=== PATIENT | female | born 1960 | race Hispanic/Latino ===

== ENCOUNTER 2021-07-19 11:58 | Emergency (ER) | payer MEDICAID ==
[2021-07-19 14:36] LABS: Basophils % (Auto) 0.1 % (0.0-1.8); Eosinophils % (Auto) 0.2 % (0.0-4.3); Hematocrit 29.2 % (30.3-42.9); Hemoglobin 9.4 gm/dl (10.1-14.3); Lymphocytes # (Auto) 1.5 K/mm3 (1.2-5.4); Lymphocytes % (Auto) 15.9 % (13.4-35.0); Mean Corpuscular HGB Conc 32 % (30-34); Mean Corpuscular Volume 84 fl (79-97); Monocytes # (Auto) 0.4 K/mm3 (0.0-0.8); Platelet Count 313 K/mm3 (140-440); Red Blood Count 3.49 M/mm3 (3.65-5.03); Red Cell Distribution Width 18.5 % (13.2-15.2)
[2021-07-19 14:39] LABS: Albumin 3.7 g/dL (3.9-5); Calcium 8.5 mg/dL (8.4-10.2)
[2021-07-19] MEDS ORDERED: LORazepam 2 MG/ML VIAL IV ONE (21:22)
--- NOTE | 2021-07-19 21:53 | Cat Scan Report ---
NONENHANCED CT SCAN OF THE HEAD: INDICATION / CLINICAL INFORMATION: 60 years Female; Seizure. TECHNIQUE: Routine CT head without contrast. All CT scans at this location are performed using CT dos e reduction for ALARA by means of automated exposure control. COMPARISON: None. FINDINGS: BRAIN / INTRACRANIAL CONTENTS: No acute hemorrhage, mass effect, midline shift, hydrocephalus, or acu te, large territorial infarct. No chronic infarct or focal atrophy. Normal brain volume and ventricul ar/sulcal size for age. No significant white matter abnormality. Given the history of seizures, no space taking lesion in the frontal or in the temporal lobes; normal temporal horn tips suggest normal medial temporal lobes; no nodular heterotopia CRANIOCERVICAL JUNCTION: No significant abnormality. ORBITS: No significant abnormality of visualized orbits. SINUSES / MASTOIDS: No significant abnormality of the visualized paranasal sinuses or mastoid air messi ls. ADDITIONAL FINDINGS: None. IMPRESSION: No acute focal parenchymal lesion in the brain Signer Name: Madelin Goodman MD Signed: 07/19/2021 9:49 PM Workstation Name: [employer]
[2021-07-19] MEDS ORDERED: levETIRAcetam 1000 MG/NS 0.75% 1,000 MG/100 ML BAG IV ONE (22:07)
--- NOTE | 2021-07-19 23:07 | Emergency Department Report ---
ED Seizure HPI - General Chief Complaint: Seizure Stated Complaint: DISORIENTED Time Seen by Provider: 07/19/21 20:16 Source: patient Mode of arrival: Ambulatory Limitations: No Limitations - History of Present Illness Initial Comments: Patient is a 60-year-old female presenting to ED after having a seizure at her friend's house. States she has history of seizures which she states usually occur when she goes long periods without eating. States she was previously on Keppra however stopped taking it after she ran out. - Related Data Previous Rx's Medication Instructions Recorded Last Taken Type levETIRAcetam [Keppra TAB] 500 mg PO BID #60 tablet 07/19/21 Unknown Rx Allergies Allergy/AdvReac Type Severity Reaction Status Date / Time nitrofurantoin Allergy Unknown Verified 07/19/21 13:10 [From Macrodantin] Sulfa (Sulfonamide Allergy Unknown Verified 07/19/21 13:10 Antibiotics) ED Review of Systems ROS: Stated complaint: DISORIENTED Other details as noted in HPI Constitutional: denies: chills, fever Respiratory: denies: cough, shortness of breath, wheezing Cardiovascular: denies: chest pain, palpitations Endocrine: no symptoms reported Gastrointestinal: as per HPI Genitourinary: denies: urgency, dysuria, discharge Skin: denies: rash, lesions Neurological: denies: headache, weakness, paresthesias Psychiatric: denies: anxiety, depression ED Past Medical Hx - Medications Home Medications: Home Medications Medication Instructions Recorded Confirmed Last Taken Type levETIRAcetam [Keppra TAB] 500 mg PO BID #60 tablet 07/19/21 Unknown Rx ED Physical Exam - General Limitations: No Limitations General appearance: alert, in no apparent distress - Head Head exam: Present: atraumatic, normocephalic - Eye Eye exam: Present: normal appearance, EOMI - Respiratory Respiratory exam: Present: normal lung sounds bilaterally. Absent: respiratory distress - Cardiovascular Cardiovascular Exam: Present: regular rate, normal rhythm, normal heart sounds - GI/Abdominal GI/Abdominal exam: Present: soft. Absent: distended, tenderness - Rectal Rectal exam: Present: deferred - Neurological Exam Neurological exam: Present: alert, oriented X3 - Psychiatric Psychiatric exam: Present: normal affect, normal mood - Skin Skin exam: Present: warm, dry, intact, normal color ED Course Vital Signs 07/19/21 07/19/21 13:11 19:16 Temperature 97.5 F L Pulse Rate 83 104 H Respiratory 18 18 Rate Blood Pressure 97/65 155/93 O2 Sat by Pulse 98 97 Oximetry ED Medical Decision Making - Lab Data Result diagrams: 07/19/21 14:01 07/19/21 14:01 - Medical Decision Making CT head unremarkable. Labs reviewed with no major abnormalities. Patient had a witnessed seizure while in the emergency department. She was given 2 mg of IV Ativan. She was also loaded with 1 g of IV Keppra. Will discharge home with Rx for Keppra. Critical care attestation.: If time is entered above; I have spent that time in minutes in the direct care of this critically ill patient, excluding procedure time. ED Disposition Clinical Impression: Seizure Disposition: 01 HOME / SELF CARE / HOMELESS Is pt being admited?: No Condition: Stable Instructions: Seizure, Adult, [id number] Additional Instructions: Please fill your Keppra prescription and take as prescribed. Referrals: DAMON GARZA MD [Primary Care Provider] - 3-5 Days Time of Disposition: 23:29
[2021-07-19] MEDS ORDERED: LORazepam 2 MG/ML VIAL ONE (23:30)
[2021-07-20 07:07] VITALS: BP 132/72
== END 2021-07-20 07:06 | disposition home or self-care (01) ==
LOC: EDBD → ED 11:58
DX: G40.909 Epilepsy, unspecified, not intractable, without status epilepticus (principal); Z88.3 Allergy status to other anti-infective agents
CPT/HCPCS: 36415; 70450; 80053; 82550; 85025; 96374; 96375; 99284; J1953; J2060

== ENCOUNTER 2021-07-20 16:25 | Emergency (ER) | payer MEDICAID ==
--- NOTE | 2021-07-20 18:12 | Emergency Department Report ---
ED Psych HPI - General Chief Complaint: Psych Stated Complaint: MIS USE OF MEDS/SI/CONFUSED/DELSIONAL Source: patient Mode of arrival: Ambulatory - History of Present Illness Initial Comments: Patient is a 60-year-old female who presents emergency department with complaint of feeling helpless. She states that she was kicked out of her facility She states that she has history of manic depressive disorder as well as bipolar disorder and she feels like her family would be better off without her. She is unclear if she is suicidal but she states she is not have a plan at this time. She states she has been abusing gabapentin at her facility and I will find a reason she was kicked out. Patient reports that she time has had seizures and takes Keppra for this. She also reports hearing voices but she states that they are most when she cannot understand what they are saying. - Related Data Previous Rx's Medication Instructions Recorded Last Taken Type levETIRAcetam [Keppra TAB] 500 mg PO BID #60 tablet 07/19/21 Unknown Rx Allergies Allergy/AdvReac Type Severity Reaction Status Date / Time nitrofurantoin Allergy Unknown Verified 07/19/21 13:10 [From Macrodantin] Sulfa (Sulfonamide Allergy Unknown Verified 07/19/21 13:10 Antibiotics) ED Review of Systems ROS: Stated complaint: MIS USE OF MEDS/SI/CONFUSED/DELSIONAL Other details as noted in HPI Constitutional: denies: chills, fever Eyes: denies: eye pain, eye discharge, vision change ENT: denies: ear pain, throat pain Respiratory: denies: cough, shortness of breath, wheezing Cardiovascular: denies: chest pain, palpitations Endocrine: no symptoms reported Gastrointestinal: denies: abdominal pain, nausea, diarrhea Genitourinary: denies: urgency, dysuria, discharge Musculoskeletal: denies: back pain, joint swelling, arthralgia Skin: denies: rash, lesions Neurological: denies: headache, weakness, paresthesias Psychiatric: auditory hallucinations. denies: anxiety, depression Hematological/Lymphatic: denies: easy bleeding, easy bruising ED Past Medical Hx - Past Medical History Previous Medical History?: Yes Additional medical history: High cholesterol, hypothyroidism, - Surgical History Past Surgical History?: Yes Additional Surgical History: Hysterectomy 2007 - Social History Smoking Status: Never Smoker - Medications Home Medications: Home Medications Medication Instructions Recorded Confirmed Last Taken Type levETIRAcetam [Keppra TAB] 500 mg PO BID #60 tablet 07/19/21 Unknown Rx ED Physical Exam - General Limitations: No Limitations General appearance: alert, in no apparent distress - Head Head exam: Present: atraumatic, normocephalic - Eye Eye exam: Present: normal appearance - ENT ENT exam: Present: mucous membranes moist - Neck Neck exam: Present: normal inspection - Respiratory Respiratory exam: Present: normal lung sounds bilaterally. Absent: respiratory distress - Cardiovascular Cardiovascular Exam: Present: regular rate, normal rhythm. Absent: systolic murmur, diastolic murmur, rubs, gallop - GI/Abdominal GI/Abdominal exam: Present: soft, normal bowel sounds - Rectal Rectal exam: Present: deferred - Extremities Exam Extremities exam: Present: normal inspection - Back Exam Back exam: Present: normal inspection - Neurological Exam Neurological exam: Present: alert, oriented X3 - Psychiatric Psychiatric exam: Present: other (auditory hallucinations) - Skin Skin exam: Present: warm, dry, intact, normal color. Absent: rash ED Course Vital Signs 07/20/21 07/20/21 16:36 18:02 Temperature 98.4 F Pulse Rate 83 Respiratory 18 Rate Blood Pressure 109/59 O2 Sat by Pulse 99 97 Oximetry - Reevaluation(s) Reevaluation #1: 07/20/21 20:07 1013 signed, patient received IVF to improve her BMP. Repeat BMP ordered for the AM. ED Medical Decision Making - Lab Data Result diagrams: 07/20/21 18:01 07/20/21 18:01 - Medical Decision Making Patient is a 60-year-old female here with complaint of possible suicidal ideations feeling of helplessness plan for behavioral health consultation will give Keppra and she has history of seizures and will medically clear for labs within normal Critical care attestation.: If time is entered above; I have spent that time in minutes in the direct care of this critically ill patient, excluding procedure time. ED Disposition Condition: Stable
[2021-07-20 18:35] LABS: Basophils # (Auto) 0.1 K/mm3 (0.0-0.1); Basophils % (Auto) 0.6 % (0.0-1.8); Eosinophils % (Auto) 0.4 % (0.0-4.3); Hematocrit 29.2 % (30.3-42.9); Hemoglobin 9.4 gm/dl (10.1-14.3); Lymphocytes # (Auto) 2.1 K/mm3 (1.2-5.4); Lymphocytes % (Auto) 16.2 % (13.4-35.0); Mean Corpuscular HGB Conc 32 % (30-34); Mean Corpuscular Volume 86 fl (79-97); Monocytes # (Auto) 0.9 K/mm3 (0.0-0.8); Monocytes % (Auto) 6.8 % (0.0-7.3); Platelet Count 298 K/mm3 (140-440); Red Blood Count 3.41 M/mm3 (3.65-5.03); Red Cell Distribution Width 18.2 % (13.2-15.2)
[2021-07-20] MEDS ORDERED: SODIUM CHLORIDE 0.9% 1000 ML 1,000 ML IV ONE (20:00)
[2021-07-20] MEDS: levETIRAcetam 500 MG/5 ML ORAL LIQD PO SCH (21:31)
[2021-07-21 00:37] LABS: Mucus,Urine FEW /HPF; RBC,Urine < 1.0 /HPF (0.0-6.0); WBC,Urine < 1.0 /HPF (0.0-6.0)
[2021-07-21 00:40] LABS: Amphetamine Screen,Urine PRESUMPTIVE NEGATIVE; Benzodiazepines Screen,Urine PRESUMPTIVE NEGATIVE; Cannabinoid Screen,Urine PRESUMPTIVE NEGATIVE; Cocaine Screen,Urine PRESUMPTIVE NEGATIVE; Methadone Screen,Urine PRESUMPTIVE NEGATIVE; Opiate Screen,Urine PRESUMPTIVE NEGATIVE
[2021-07-21 00:42] LABS: Bilirubin,Urine Negative (Negative); Blood,Urine NEG (Negative); Color,Urine Colorless (Yellow)
[2021-07-21 00:43] LABS: Protein,Urine <15 mg/dL mg/dL (Negative); Urobilinogen,Urine < 2.0 mg/dL (<2.0)
[2021-07-21 06:17] LABS: BUN/Creatinine Ratio 17; Blood Urea Nitrogen 15 mg/dL (7-17); Calcium 8.2 mg/dL (8.4-10.2); Hemolysis Index 4
--- NOTE | 2021-07-21 10:49 | Consultation ---
History of Present Illness - Reason for Consult Consult date: 07/21/21 Reason for consult: SI, polysubstance abuse - History of Present Psychiatric Illness HPI: Patient is a 60-year-old female who presents emergency department with complaint of feeling helpless. She states that she was kicked out of her facility She states that she has history of manic depressive disorder as well as bipolar disorder and she feels like her family would be better off without her. She is unclear if she is suicidal but she states she is not have a plan at this time. She states she has been abusing gabapentin at her facility and I will find a reason she was kicked out. Patient reports that she time has had seizures and takes Keppra for this. She also reports hearing voices but she states that they are most when she cannot understand what they are saying. The patient was seen today. She is a/o x 2. She says she is depressed and anxious. The patient says she came from a facility in [place], [place]. The patient endorses "marijuan, meth, hydrocodone, soma and adderall addiction." She says says she was kicked out of the facility she was living. The patient says "I don't want to live like this. The patient says she feels hopeless and doesn't know what to do. She also says she hears voices. When asking the patient what where the voices saying, she says "I can't really tell. Just a bunch of noise." Will start medication and recommend acute psychiatric inpatient treatment for stabilization. PAST PSYCHIATRIC HISTORY: Diagnoses: depression, anxiety, polysubstance abuse Suicide attempts or Self-harm behavior: yes Prior psychiatric hospitalizations: yes Substance Abuse history: Denies Previous psychiatric medications tried: could not recall Outpatient treatment: yes PAST MEDICAL HISTORY: None reported or document Family Psychiatric History: None reported or documented SOCIAL HISTORY Marital Status: Living Arrangements: Homeless Employment Status: Disabled Access to guns/weapons: Denies Education: History of Abuse:Denies Legal History: Denies REVIEW OF SYSTEMS Constitutional: Negative for weight loss ENT: Negative for stridor Respiratory: Negative for cough or hemoptysis All other systems reviewed and are negative MENTAL STATUS EXAMINATION General Appearance and Behavior: Age appropriate, wearing appropriate clothes, cooperative, polite with questioning, good eye contact Cooperation: cooperative Psychomotor Behavior: Psychomotor normal Mood: depressed, anxious Affect and affective range: congruent with stated mood Thought Process: circumstantial Thought Content: SI, hallucinations, hopelessness, helplessness Speech: Normal volume, and tone Suicidal Ideation: Yes Homicidal Ideation: Denies Hallucination: Auditory Delusions: None elicited Impulse Control: Limited Insight and Judgment: Limited Memory: limited Attention:attentive Orientation: Alert and oriented Diagnoses: Major Depressive Disorder Polysubstance Abuse Treatment Plan 1013 Prozac 10mg po daily Abilify 5mg po daily Doxepin 10mg po qhs Medical: per primary Sitter: defer to primary Disposition: recommend acute psychiatric inpatient treatment Will follow. Thanks Case staffed with Dr. Curran Medications and Allergies Allergies Allergy/AdvReac Type Severity Reaction Status Date / Time nitrofurantoin Allergy Unknown Verified 07/19/21 13:10 [From Macrodantin] Sulfa (Sulfonamide Allergy Unknown Verified 07/19/21 13:10 Antibiotics) Home Medications Medication Instructions Recorded Confirmed Last Taken Type levETIRAcetam [Keppra TAB] 500 mg PO BID #60 tablet 07/19/21 Unknown Rx Active Meds: Active Medications Levetiracetam (Levetiracetam 500 Mg/5 Ml Oral Liqd) 750 mg PO BID ELIZA Last Admin: 07/20/21 21:31 Dose: 750 mg Mental Status Exam - Vital signs Last Vital Signs Temp 98.5 F 07/20/21 20:25 Pulse 85 07/20/21 20:25 Resp 18 07/20/21 20:25 BP 115/64 07/20/21 20:25 Pulse Ox 98 07/20/21 21:23 Results Result Diagrams: 07/20/21 18:01 07/21/21 05:32 Abnormal lab results 07/20/21 07/20/21 07/20/21 Range/Units 18:01 18:01 18:01 WBC (4.5-11.0) K/mm3 RBC (3.65-5.03) M/mm3 Hgb (10.1-14.3) gm/dl Hct (30.3-42.9) % RDW (13.2-15.2) % [place] # (Auto) (0.0-0.8) K/mm3 Seg Neutrophils % (40.0-70.0) % Seg Neutrophils # (1.8-7.7) K/mm3 Sodium 136 L (137-145) mmol/L Carbon Dioxide 15 L D (22-30) mmol/L BUN 19 H (7-17) mg/dL Glucose 114 H (65-100) mg/dL Calcium (8.4-10.2) mg/dL Salicylates < 0.3 L (2.8-20.0) mg/dL Acetaminophen 5.0 L (10.0-30.0) ug/mL 07/20/21 07/21/21 Range/Units 18:01 05:32 WBC 13.2 H (4.5-11.0) K/mm3 RBC 3.41 L (3.65-5.03) M/mm3 Hgb 9.4 L (10.1-14.3) gm/dl Hct 29.2 L (30.3-42.9) % RDW 18.2 H (13.2-15.2) % [place] # (Auto) 0.9 H (0.0-0.8) K/mm3 Seg Neutrophils % 76.0 H (40.0-70.0) % Seg Neutrophils # 10.1 H (1.8-7.7) K/mm3 Sodium (137-145) mmol/L Carbon Dioxide (22-30) mmol/L BUN (7-17) mg/dL Glucose (65-100) mg/dL Calcium 8.2 L (8.4-10.2) mg/dL Salicylates (2.8-20.0) mg/dL Acetaminophen (10.0-30.0) ug/mL All other labs normal.
[2021-07-21] MEDS ORDERED: ARIPiprazole 5 MG TAB PO SCH (11:00)
[2021-07-21] MEDS: levETIRAcetam 500 MG/5 ML ORAL LIQD PO SCH ×2 (11:00→21:56)
[2021-07-21] MEDS ORDERED: FLUoxetine 10 MG TAB PO SCH (11:00)
--- NOTE | 2021-07-21 13:20 | Event Note ---
Date: 07/21/21 Spoke with the patient again today. She says she takes seroquel 100mg morning, noon and 400 qhs. Also prozac 40. Adjusted meds to reflect patient stated doses.
[2021-07-21 20:30] VITALS: BP 119/80
[2021-07-21] MEDS ORDERED: QUEtiapine 200 MG TAB PO SCH (22:00)
[2021-07-21] MEDS ORDERED: DOXEPIN 10 MG CAP PO SCH (22:00)
[2021-07-22] MEDS ORDERED: QUEtiapine 100 MG TAB PO SCH (08:00)
[2021-07-22] MEDS ORDERED: FLUoxetine 20 MG CAP PO SCH (10:00)
--- NOTE | 2021-07-22 11:25 | Progress Note ---
Subjective - Reason for Consult Consult date: 07/22/21 Reason for consult: mental health evaluation - Chief Complaint Chief complaint: The patient was seen today. She is calm, alert and oriented x3. The patient states sleep and appetite as good. She reports the she was discharged from [facility] for feeling " sad and hopeless." The patient reports passive suicidal ideation with no plan. She denies hallucinations. REVIEW OF SYSTEMS Constitutional: Negative for weight loss ENT: Negative for stridor Respiratory: Negative for cough or hemoptysis All other systems reviewed and are negative MENTAL STATUS EXAMINATION General Appearance and Behavior: Age appropriate, wearing appropriate clothes, cooperative, polite with questioning, good eye contact Cooperation: cooperative Psychomotor Behavior: Psychomotor normal Mood: Depressed Affect and affective range: congruent with stated mood Thought Process: Goal oriented Thought Content: Reality oriented Speech: Normal volume, and tone Suicidal Ideation: Passive Homicidal Ideation: Denies Hallucination: Denies Delusions: None elicited Impulse Control: Limited Insight and Judgment: Limited Memory: limited Attention:attentive Orientation: Alert and oriented Diagnoses: Major Depressive Disorder Polysubstance Abuse Treatment Plan [id number] Case management continue home meds Medical: per primary Sitter: defer to primary Disposition:Do not recommend acute psychiatric inpatient treatment. [employer]boat [employer] will provide patient with psychiatric outpatient resources. Will sign off. Thanks Case staffed with Dr. Curran Medications and Allergies Mental Status Exam - Vital signs Last Vital Signs Temp 98.9 F 07/21/21 20:29 Pulse 87 07/21/21 20:29 Resp 16 07/21/21 20:29 BP 119/80 07/21/21 20:29 Pulse Ox 98 07/20/21 22:00
== END 2021-07-22 14:00 | disposition home or self-care (01) ==
LOC: EEVIPCON 16:25 → ED 16:25
DX: R45.851 Suicidal ideations (principal); F31.9 Bipolar disorder, unspecified; Z20.822 Contact with and (suspected) exposure to COVID-19
CPT/HCPCS: 36415; 80048; 80307; 81001; 85025; 96360; 99284; J7030; U0003; 80320; G0480